=== PATIENT | male | born 1990 | race American Indian/Alaskan Native ===

== ENCOUNTER 2021-03-29 23:16 | Emergency (ER) | payer SELFPAY ==
--- NOTE | 2021-03-30 08:11 | Event Note ---
Face to Face: For this encounter I have reviewed the PA/FACILITY SERVICE MANAGER documentation, treatment plan, medical decision making, and I had face to face time with this patient. I personally evaluated patient. Clinical impression: Tinea corporis I recommended oral and topical antifungal agents. I gave patient instructions and education. I recommended dermatology follow-up.
--- NOTE | 2021-03-30 08:15 | Emergency Department Report ---
- General Chief complaint: Skin Rash Stated complaint: RASH Time Seen by Provider: 03/30/21 07:33 Source: patient Mode of arrival: Ambulatory Limitations: No Limitations - History of Present Illness Initial comments: 31-year-old male presents to the ER today with complaints of rash. Patient states that few weeks ago he developed this rash to his right forearm which went away on its own. He states that same similar rash reappeared last week but this time was worse and this time all over his body. He still reports some mild itching to the rash but he denies any pain. He states that he has been taking some Benadryl which does help the itching. He denies any new contacts such as soaps, foods, medications, lotions or any other new contacts. He denies any recent travel out of the country. He does admit to having multiple sexual partners. He denies any dysuria, or penile discharge. 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 He denies any shortness of breath or chest pain, facial or extremity swelling, cough, wheezing or any other symptoms at this time. MD complaint: rash -: Gradual, week(s) (1) Location: generalized - Related Data Previous Rx's Medication Instructions Recorded Last Taken Type Fluconazole [Diflucan TAB] 100 mg PO QDAY #30 tablet 03/30/21 Unknown Rx Terbinafine HCl [Lamisil At 1% 1 applic TP BID #30 gm 03/30/21 Unknown Rx CREAM] Allergies Allergy/AdvReac Type Severity Reaction Status Date / Time No Known Allergies Allergy Unverified 03/30/21 02:51 Abscess Boil HPI - HPI Chief Complaint: Skin Rash Stated Complaint: RASH Time Seen by Provider: 03/30/21 07:33 Home Medications: Previous Rx's Medication Instructions Recorded Last Taken Type Fluconazole [Diflucan TAB] 100 mg PO QDAY #30 tablet 03/30/21 Unknown Rx Terbinafine HCl [Lamisil At 1% 1 applic TP BID #30 gm 03/30/21 Unknown Rx CREAM] Allergies/Adverse Reactions: Allergies Allergy/AdvReac Type Severity Reaction Status Date / Time No Known Allergies Allergy Unverified 03/30/21 02:51 ED Review of Systems ROS: Stated complaint: RASH Other details as noted in HPI Comment: All other systems reviewed and negative Constitutional: denies: chills, fever Eyes: denies: eye pain, eye discharge, vision change ENT: denies: ear pain, throat pain, dental pain, hearing loss, epistaxis, congestion Respiratory: denies: cough, shortness of breath, SOB with exertion, SOB at rest, wheezing Cardiovascular: denies: chest pain, palpitations Gastrointestinal: denies: abdominal pain, nausea, diarrhea, constipation, hematemesis Genitourinary: denies: urgency, dysuria, frequency, hematuria, discharge, testicular pain, testicular mass Musculoskeletal: denies: back pain, joint swelling, arthralgia Skin: rash. denies: lesions Neurological: denies: headache, weakness, paresthesias Psychiatric: denies: anxiety, depression, auditory hallucinations, visual hallucinations, homicidal thoughts, suicidal thoughts Hematological/Lymphatic: denies: easy bleeding, easy bruising, swollen glands ED Past Medical Hx - Past Medical History Previous Medical History?: No - Surgical History Past Surgical History?: No - Social History Smoking Status: Never Smoker Substance Use Type: None - Medications Home Medications: Home Medications Medication Instructions Recorded Confirmed Last Taken Type Fluconazole [Diflucan TAB] 100 mg PO QDAY #30 tablet 03/30/21 Unknown Rx Terbinafine HCl [Lamisil At 1% 1 applic TP BID #30 gm 03/30/21 Unknown Rx CREAM] ED Physical Exam - General Limitations: No Limitations General appearance: alert, in no apparent distress - Head Head exam: Present: atraumatic, normocephalic, normal inspection - Eye Eye exam: Present: normal appearance, PERRL Pupils: Present: normal accommodation - ENT ENT exam: Present: normal exam, mucous membranes moist - Neck Neck exam: Present: normal inspection, full ROM - Respiratory Respiratory exam: Present: normal lung sounds bilaterally. Absent: respiratory distress - Cardiovascular Cardiovascular Exam: Present: regular rate, normal rhythm, normal heart sounds - Neurological Exam Neurological exam: Present: alert, oriented X3, CN II-XII intact, normal gait - Psychiatric Psychiatric exam: Present: normal affect, normal mood - Skin Skin exam: Present: rash (Diffuse, erythematous, maculopapular, vesicular, rash noted, some of them are also annular with well-demarcated borders, no pus drainage or any signs of secondary bacterial infection.) ED Course Vital Signs 03/30/21 03/30/21 02:51 08:37 Temperature 98.7 F Pulse Rate 101 H 76 Respiratory 18 16 Rate Blood Pressure 146/95 O2 Sat by Pulse 97 100 Oximetry ED Medical Decision Making - Medical Decision Making Case discussed with Dr. Jannette Gibson. Patient evaluated by myself and Dr. Gibson. It is suspected that patient may have a severe case of tinea corporis. See her note for detail. Patient will be started on oral daily Diflucan and also antifungal cream. It was stressed to patient that he will need to follow-up with gas check pad maker if his symptoms does not get better. Patient expressed und erstanding and agree with plan. Patient stable at time of discharge. Critical care attestation.: If time is entered above; I have spent that time in minutes in the direct care of this critically ill patient, excluding procedure time. ED Disposition Clinical Impression: Tinea corporis Disposition: DC-01 TO HOME OR SELFCARE Is pt being admited?: No Does the pt Need Aspirin: No Condition: Stable Instructions: Body Ringworm Additional Instructions: Take the fluconazole and use the Lamisil cream as prescribed. Continue taking Benadryl as needed to help with itching. It is important that you follow-up with a gas check pad maker especially if your symptoms do not get any better. Return to the ER if your symptoms changes or worsens in any way. Prescriptions: Fluconazole [Diflucan TAB] 100 mg PO QDAY #30 tablet Terbinafine HCl [Lamisil At 1% CREAM] 1 applic TP BID #30 gm Referrals: CHRISTEN MUHAMMAD MD [Staff Physician] - 3-5 Days Lumps, and Bumps [Other] - 3-5 Days Forms: Work/School Release Form(ED) Time of Disposition: 08:15
== END 2021-03-30 08:37 | disposition home or self-care (01) ==
LOC: ED 23:16
DX: B35.4 Tinea corporis (principal)
CPT/HCPCS: 99282